=== PATIENT | male | born 1990 | race Caucasian/White ===

== ENCOUNTER 2018-01-14 13:24 | Emergency (ER) | payer MEDICAID ==
[~2018-01-14] VITALS: Ht 172.7 cm; Wt 63.5 kg
[2018-01-14 13:44] VITALS: BP_SYST 148
[2018-01-14 14:25] LABS: BILIRUBIN,URINE NEGATIVE (NEGATIVE); BLOOD, URINE 1+ (NEGATIVE); CLARITY/URINE CLEAR (CLEAR); COLOR,URINE YELLOW (YELLOW); GLUCOSE,URINE NEGATIVE (NEGATIVE); KETONES,URINE NEGATIVE (NEGATIVE); LEUKOCYTE ESTERASE ,URINE 1+ (NEGATIVE); NITRITE, URINE NEGATIVE (NEGATIVE); PROTEIN URINE 1+ (NEGATIVE)
[2018-01-14 14:45] LABS: BACTERIA,URINE RARE /HPF (None Seen); MUCUS,URINE 3+ /LPF (None Seen)
[2018-01-14 14:59] VITALS: BP_SYST 148
== END 2018-01-14 14:59 | disposition home or self-care (01) ==
LOC: SED 13:24
DX: N39.0 Urinary tract infection, site not specified (principal); R19.04 Left lower quadrant abdominal swelling, mass and lump; R03.0 Elevated blood-pressure reading, without diagnosis of hypertension
CPT/HCPCS: 81000-TC; 87086; 99284; 99285

== ENCOUNTER 2018-01-21 13:21 | Emergency (ER) | payer MEDICAID ==
[~2018-01-21] VITALS: Ht 172.7 cm; Wt 61.2 kg
[2018-01-21 13:37] VITALS: BP_SYST 140
[2018-01-21] MEDS ORDERED: KETOROLAC TROMETHAMINE 60 MG/2 ML VIAL IM ONE (14:00)
[2018-01-21] MEDS ORDERED: DEXAMETHASONE SOD PHOSPHATE 10 MG/ML VIAL IM ONE (14:00)
[2018-01-21 15:00] VITALS: BP_SYST 138
[2018-01-23 10:32] LABS: CHLAMYDIA TRACHOMATIS NAA Negative (Negative); NEISSERIA GONORRHOEAE NAA Negative (Negative)
== END 2018-01-21 15:00 | disposition home or self-care (01) ==
LOC: SED 13:21
DX: J02.8 Acute pharyngitis due to other specified organisms (principal); B97.89 Other viral agents as the cause of diseases classified elsewhere
CPT/HCPCS: 36415; 86403; 87081; 87491; 87591; 96372; 99284; J1100; J1885